=== PATIENT | female | born 1995 | race African-American/Black ===

== ENCOUNTER 2017-06-04 00:11 | Emergency (ER) | payer MEDICAID, OTHER ==
[~2017-06-04] VITALS: Ht 165.1 cm; Wt 58.0 kg
[~2017-06-04 00:11] MED LIST: TNFMISC
[2017-06-04] MEDS ORDERED: OxyCODONE HCL/ACETAMINOPHEN 5-325 MG TABLET PO ONE (02:45)
[2017-06-04 02:52] VITALS: BP 125/71
== END 2017-06-04 02:59 | disposition home or self-care (01) ==
LOC: EMS 00:14
DX: S42.251A Displaced fracture of greater tuberosity of right humerus, initial encounter for closed fracture (principal); S20.411A Abrasion of right back wall of thorax, initial encounter; F17.210 Nicotine dependence, cigarettes, uncomplicated; V89.9XXA Person injured in unspecified vehicle accident, initial encounter; Y93.89 Activity, other specified; Y92.488 Other paved roadways as the place of occurrence of the external cause; Y99.8 Other external cause status
CPT/HCPCS: 29505; 99285